=== PATIENT | male | born 1935 | race Caucasian/White ===

== ENCOUNTER 2016-07-29 17:18 | Emergency (ER) | payer OTHER ==
[~2016-07-29] VITALS: Ht 185.4 cm; Wt 71.0 kg
[~2016-07-29 17:18] MED LIST: AMLO10TA2 PO; ATOR40TA16 PO; MIRT1TAB PO
[2016-07-29 17:24] VITALS: BP 120/78; PULSE 107; RESP 16; TEMP 99.6; O2SAT 99
--- NOTE | 2016-07-29 17:37 | PD ---
HPI Chief Complaint: Fall Time Seen by Provider: 17:37 Travel History International Travel<30 days: No Contact w/Intl Traveler<30days: No Traveled to known affect area: No History of Present Illness HPI 81-year-old male presents to the emergency department for evaluation of right knee injury that occurred 2 days ago. He states he stepped down off a curb and fell hitting his right knee. He also has an abrasion to his left elbow. Patient states his tetanus immunization is not up-to-date. He states he went to an urgent care center who referred him to the emergency department. He states he had no pain before the injury. He denies any other injury. No head injury LOC. No neck pain or back pain. No chest pain or abdominal pain. No vomiting. He does report a history of multiple myeloma and renal carcinoma. However, he is in remission. He does also report history of hypertension and hyperlipidemia. He does not take any blood thinners and has no bleeding disorders. Patient has been ambulatory since the fall, but pain in the right knee with ambulation. PFSH Past Medical History Cancer: Yes (RENAL MASS) Cardiovascular Problems: Yes (htn on meds) High Cholesterol: Yes Chemotherapy: Yes (Last [place] end May ) Diabetes: No Diminished Hearing: No Endocrine: No Gastrointestinal Disorders: Yes (constipation) Genitourinary: No Hepatitis: No Hiatal Hernia: No Hypertension: Yes Immune Disorder: No Musculoskeletal: Yes (left rib pain) Neurologic: No Psychiatric: No Reproductive: No Respiratory: No Immunizations Current: No Thyroid Disease: No Tetanus Vaccination: Unknown Past Surgical History AICD: No Ear Surgery: Yes (right cataract) Joint Replacement: No Pacemaker: No Tonsillectomy: Yes Other Surgery: Yes (HEMORRHOIDECTOMY) Social History Alcohol Use: No (QUIT) Tobacco Use: No (QUIT 1987) Substance Use: No Allergies-Medications (Allergen,Severity, Reaction): Coded Allergies: No Known Allergies (Verified , 07/29/16) Reported Meds & Prescriptions Reported Meds & Active Scripts Active Lortab (Hydrocodone-Acetaminophen) 5-325 Mg Tab 1 Tab PO Q6H PRN Reported Atorvastatin (Atorvastatin Calcium) 40 Mg Tab 40 Mg PO HS Amlodipine (Amlodipine Besylate) 10 Mg Tab 10 Mg PO DAILY Review of Systems Except as stated in HPI: all other systems reviewed are Neg Physical Exam Narrative GENERAL: Well-developed well-nourished elderly male patient, ambulatory. Afebrile. SKIN: Warm and dry. Swelling noted to right knee. Patient also has abrasion to the left elbow. No erythema over right knee, slight warmth noted. HEAD: Normocephalic. Atraumatic. EYES: No scleral icterus. No injection or drainage. NECK: Supple, trachea midline. No JVD or lymphadenopathy. CARDIOVASCULAR: Regular rate and rhythm without murmurs, gallops, or rubs. Right pedal pulse 2+. Capillary refill less than 2 seconds to the digits of the right foot. RESPIRATORY: Breath sounds equal bilaterally. No accessory muscle use. Lungs sounds are clear to auscultation. GASTROINTESTINAL: Abdomen soft, non-tender, nondistended. MUSCULOSKELETAL: No cyanosis, or edema. Patient has slightly limited flexion due to pain, he can almost actively flex knee to 90 degrees.. He has full extension. He has some tenderness to palpation over the anterior knee. BACK: Nontender without obvious deformity. No CVA tenderness. Data Data Last Documented VS Vital Signs Date Time Temp Pulse Resp B/P Pulse Ox O2 Delivery O2 Flow Rate FiO2 07/29/16 17:30 16 99 Room Air 07/29/16 17:24 99.6 107 120/78 Orders Knee, Complete (4vws) (07/29/16 ) Tetanus/Diphtheria Tox Adult (Tetanus/Di (07/29/16 17:45) Acetamin-Hydrocod 325-5 Mg ([place] 5-325 (07/29/16 18:00) Ct Knee W/O Contrast (07/29/16 ) Splint Or Brace Apply/Monitor (07/29/16 19:14) MDM Medical Decision Making Medical Screen Exam Complete: Yes Emergency Medical Condition: Yes Medical Record Reviewed: Yes Interpretation(s) x-ray right knee - CONCLUSION: Soft-tissue swelling anteriorly with a large joint effusion. An acute fracture is not clearly identified. Ct of the right knee - CONCLUSION: 1. Large joint effusion. 2. Chondrocalcinosis. 3. Chronic degenerative change. Differential Diagnosis Knee contusion versus any fracture versus knee dislocation Narrative Course 81-year-old male presents to the emergency department for evaluation of right knee pain after a trip and fall 2 days ago. X-ray of the right knee is ordered and pending. Tetanus immunization is updated. X-ray of the right knee shows soft-tissue swelling anteriorly with a large joint effusion. An acute fracture is not clearly identified. CT of the knee is ordered and pending to rule out occult fracture. CT of the right knee shows CONCLUSION: 1. Large joint effusion; 2. Chondrocalcinosis; 3. Chronic degenerative change. Ari bandages applied. Patient started to use ice at home. He'll be discharged prescription for Lortab for pain. Also be given a prescription for Keflex for abrasion to the left elbow. He is encouraged to follow-up with orthopedist. He has instructed return for any worsening symptoms. The patient was discharged in stable condition with instructions, including return instructions and follow up instructions. Diagnosis Primary Impression: Contusion of right knee Qualified Code: S80.01XA - Contusion of right knee, initial encounter Additional Impression: Abrasion of elbow Qualified Code: S50.312A - Abrasion of elbow, left, initial encounter Referrals: Orthopedist call for appointment Patient Instructions: Abrasion (ED), Contusion in Adults (ED), General Instructions Additional Instructions: Clean abrasion twice daily with soap and water and apply [id number] antibiotic ointment. Take antibiotic as instructed until gone. Wear Ari bandage for support. Ice for 20 minutes 4-5 times daily. Follow-up with an orthopedist. Return to the emergency department for any acute worsening of symptoms. Med/Other Pt SpecificInfo: Prescription(s) given Scripts Cephalexin (Keflex)500 Mg [id number] Mg PO Q6H 7 Days Ref 0 Prov:Althea Mcgee 07/29/16 Hydrocodone-Acetaminophen (Lortab)5-325 Mg Tab1 Tab PO Q6H PRN (PAIN) #16 TAB Ref 0 Prov:Christy Lagunas MD 07/29/16 Disposition: 01 DISCHARGE HOME Condition: Stable Althea Mcgee Jul 29, 2016 17:37
[2016-07-29] MEDS ORDERED: TETANUS/DIPHTHERIA TOXOID ADULT 0.5 ML VIAL IM ONE (17:45)
[2016-07-29] MEDS ORDERED: ACETAMINOPHEN/HYDROcodone 325 MG/5 MG TAB PO ONE (18:00)
--- NOTE | 2016-07-29 18:09 | RADHPO ---
EXAM DATE/TIME: 07/29/2016 17:41 [facility] COMPARISON: No previous studies available for comparison. INDICATIONS : Right knee pain post fall on 07/27/16. MEDICAL HISTORY : None. SURGICAL HISTORY : None. ENCOUNTER: Initial ACUITY: 3 days PAIN SCORE: 9/10 LOCATION: Right knee. FINDINGS: There is a large joint effusion. An acute fracture is not clearly seen. There is some degree of cho ndrocalcinosis seen especially medially. There is some hypertrophic change seen at the proximal fibu la. There is prominent hypertrophic change seen at the posterior patella and superior to the patella . Vascular calcifications are seen. Soft-tissue swelling is seen anteriorly. CONCLUSION: Soft-tissue swelling anteriorly with a large joint effusion. An acute fracture is not clearly identi fied. Cam Herndon MD on July 29, 2016 at 18:01 Board Certified Radiologist. This report was verified electronically.
--- NOTE | 2016-07-29 19:03 | RADHPO ---
EXAM DATE/TIME: 07/29/2016 18:24 [facility] COMPARISON: KNEE RIGHT COMPLETE (4VWS), July 29, 2016, 17:41. INDICATIONS : Fall onto right knee two days ago. RADIATION DOSE: 9.59 CTDIvol (mGy) MEDICAL HISTORY : renal carcinoma, multiple myeloma SURGICAL HISTORY : bilateral knee arthroscopy ENCOUNTER: Initial ACUITY: 2 days PAIN SCALE: 6/10 LOCATION: Right knee TECHNIQUE: Volumetric scanning of the knee was performed. Using automated exposure control and a djustment of the mA and/or kV according to patient size, radiation dose was kept as low as reasonably achievable to obtain optimal diagnostic quality images. FINDINGS: A fracture is not seen. There does appear to be chondrocalcinosis being most prominent laterally. T here is hypertrophic change at the medial and lateral aspects of the knee joint. There is also hyper trophic change at the posterior margin of the patella and superior to the patella. There is a large joint effusion. There is a small focus of air seen within the medial aspect of the lateral joint spa ce. This could be secondary to a vacuum phenomenon. Vascular calcifications are seen. There is garry e soft-tissue swelling in the anterior subcutaneous tissues. CONCLUSION: 1. Large joint effusion. 2. Chondrocalcinosis. 3. Chronic degenerative change. Cam Herndon MD on July 29, 2016 at 18:55 Board Certified Radiologist. This report was verified electronically.
[2016-07-29] MEDS ORDERED: HYDR-3533 PO (19:11)
[2016-07-29] MEDS ORDERED: CEPH-460 PO (19:16)
[2016-07-29 19:33] VITALS: BP 98/78
== END 2016-07-29 19:37 | disposition home or self-care (01) ==
LOC: PHEFT 17:18
DX: S80.01XA Contusion of right knee, initial encounter (principal); S50.319A Abrasion of unspecified elbow, initial encounter; I10 Essential (primary) hypertension; E78.00 Pure hypercholesterolemia, unspecified; C90.00 Multiple myeloma not having achieved remission; Z23 Encounter for immunization
CPT/HCPCS: 73564; 73700; 90471; 90714

== ENCOUNTER → 2016-08-11 | Day surgery (SDC) | payer OTHER ==
[~2016-08-11] MED LIST changes: +ACETAMINOPHEN 1000 MG/100 ML VIAL IV ONE; +BUPIVACAINE/EPINEPHRINE 0.25% PF 30 ML VIAL ONE; +CEPH-460 PO; +HYDR-3533 PO; +LACTATED RINGER'S 1000 ML INJ 1,000 ML ONE; +LIDOCAINE 1%/EPINEPHrine 1:100,000 SOLN 20 ML VIAL ONE; +MIDAZOLAM HCL 2 MG/2 ML VIAL ONE; -MIRT1TAB PO; +PROPOFOL 200 MG/20 ML AMP IV ONE; +SODIUM CHLOR 0.9% 250 ML BAG IV ONE; +VANCOMYCIN HCL 1000 MG VIAL ONE; +ceFAZolin INJ 1,000 MG VIAL ONE
--- NOTE | 2016-08-15 07:14 | MP ---
cc: RYANNE CANDELARIO M.D. DATE OF SURGERY: 08/11/2016 PROCEDURE Right inguinal hernia repair with mesh. PREOPERATIVE DIAGNOSIS Symptomatic right inguinal hernia. POSTOPERATIVE DIAGNOSIS Symptomatic right inguinal hernia. ANESTHESIA TIVA. SURGEON Scott ESTIMATED BLOOD LOSS Less than 10 mL. FLUIDS 800 mL crystalloid. COMPLICATIONS None. DRAINS None. SPECIMEN None. PROCEDURE IN DETAIL The patient was seen in the holding area and the area to be operated on was marked by the undersigned and confirmed by the patient. He was taken to the operating room and placed on the operating table in supine position. The area was shaved, prepped and draped. A timeout was taken confirming the correct patient, site and procedure to be performed. The right groin area was infiltrated with local anesthetic and an incision made in the right groin. Dissection was carried down to the external oblique fascia where further subfascial injections were made with local anesthetic and the external oblique fibers opened in the direction of the fibers. Underlying tissue was swept free from the external oblique fascia and the spermatic cord structures were brought up on a Josh drain. Dissection was carried back to the internal ring and the patient was noted to have an indirect inguinal hernia. The indirect sac was dissected off of the cord structures and ligated with a pursestring 2-0 silk suture as the sac was entered at the point. The ligation occurred below the level of the opening. The excess sac was trimmed and the stump was allowed to retract into the abdominal cavity. The hernia was then repaired with a 3 x 6 inches piece of Atrium mesh which was transfixed to the pubic tubercle. This was then run along the shelving edge of the inguinal ligament with 2-0 Prolene suture. The mesh was slit longitudinally to allow for egress of the cord structures. The mesh was then fixed medially with interrupted 2-0 Prolene sutures. The iliohypogastric nerve was identified and care was taken to keep all sutures away from this nerve. The medial leaf of the mesh was then transposed over the lateral leaf of mesh and fixed to the inguinal ligament to create a new internal ring. The new internal ring was smaller to allow for egress of the cord structures but to minimize the risk of recurrence. With hemostasis assured 30 mL of 0.25% Marcaine with epinephrine was injected into the transversalis fascia and subcutaneous tissues. The external oblique fascia was closed with a running 3-0 Vicryl suture. The wound was then re-approximated with interrupted 3-0 Vicryl and the skin closed with 5-0 PDS in a running subcuticular fashion. The wound was dressed with Telfa and Tegaderm and the patient was taken back to the recovery room in stable condition. Sponge, needle and instrument counts were reported be correct. The patient tolerated the procedure well. MD ANNA Flood/SANJAY /9:15 AM /7:04 AM
== END | disposition home or self-care (01) ==
LOC: ESDC 08:09
PROVIDERS: ATTEND Surgery Trauma Surgery
DX: K40.90 Unilateral inguinal hernia, without obstruction or gangrene, not specified as recurrent (principal)
CPT/HCPCS: 00830; 49505; C1781; J0131; J0690; J2250; J3010; J3370; J7050; J7120

== ENCOUNTER 2017-05-04 14:56 | Inpatient (IN) | payer OTHER, MEDICARE ==
[~2017-05-04] VITALS: Ht 185.4 cm; Wt 72.7 kg
[2017-05-04] VITALS (7 sets, daily range): BP systolic 88–116; BP diastolic 53–65; PULSE 62–125; RESP 18–20; TEMP 97.4–98.5; O2SAT 96–99
[~2017-05-04 14:56] MED LIST changes: -ACETAMINOPHEN 1000 MG/100 ML VIAL IV ONE; -BUPIVACAINE/EPINEPHRINE 0.25% PF 30 ML VIAL ONE; -LACTATED RINGER'S 1000 ML INJ 1,000 ML ONE; -LIDOCAINE 1%/EPINEPHrine 1:100,000 SOLN 20 ML VIAL ONE; -MIDAZOLAM HCL 2 MG/2 ML VIAL ONE; -PROPOFOL 200 MG/20 ML AMP IV ONE; -SODIUM CHLOR 0.9% 250 ML BAG IV ONE; -VANCOMYCIN HCL 1000 MG VIAL ONE; -ceFAZolin INJ 1,000 MG VIAL ONE
[2017-05-04] MEDS ORDERED: MED FOR SLEEP PO (15:24)
[2017-05-04] MEDS ORDERED: UMEC1AER INH (15:24)
[2017-05-04] MEDS ORDERED: OXYMETAZOLINE HCL 0.05% 15 ML NASAL SPRAY NASAL ONE (16:15)
[2017-05-04] MEDS ORDERED: LIDOCAINE 2% JELLY 30 ML TUBE TOPICAL ONE (16:15)
[2017-05-04] MEDS ORDERED: SODIUM CHLOR 0.9% 1000 ML INJ 1,000 ML IV SCH (16:56)
--- NOTE | 2017-05-04 16:59 | PD ---
HPI . Epistaxis Chief Complaint: Nosebleed Time Seen by Provider: 16:05 Travel History International Travel<30 days: No Contact w/Intl Traveler<30days: No Traveled to known affect area: No History of Present Illness HPI Patient presents with chief complaint of bleeding from the left nare. Onset was about an hour prior to presentation. Etiology is unknown. The patient states that he was at the oncologist office when the bleeding started. He states that the oncologist told him to come here. The states that the oncologist is concerned about possible dehydration. He has had a diarrheal illness for the last few days and is feeling very weak. The patient has a history of multiple myeloma and renal cell carcinoma. PFSH Past Medical History Cancer: Yes (RENAL MASS; MULTIPLE MYELOMA) Cardiovascular Problems: Yes (htn on meds) High Cholesterol: Yes Chemotherapy: Yes (Last [place] end May ) Diabetes: No Diminished Hearing: No Endocrine: No Gastrointestinal Disorders: Yes (constipation) Genitourinary: No Hepatitis: No Hiatal Hernia: No Hypertension: Yes Immune Disorder: No Musculoskeletal: Yes (left rib pain) Neurologic: No Psychiatric: No Reproductive: No Respiratory: No Immunizations Current: No Thyroid Disease: No Tetanus Vaccination: < 5 Years Influenza Vaccination: Yes Past Surgical History AICD: No Ear Surgery: Yes (right cataract) Joint Replacement: No Pacemaker: No Tonsillectomy: Yes Other Surgery: Yes (HEMORRHOIDECTOMY) Social History Alcohol Use: No (QUIT) Tobacco Use: No (QUIT 1987) Substance Use: No Allergies-Medications (Allergen,Severity, Reaction): Coded Allergies: No Known Allergies (Verified , 05/04/17) Reported Meds & Prescriptions Reported Meds & Active Scripts Active Reported [Med For Sleep] 1 Tab PO HS Anoro Ellipta Inh (Umeclidinium/Vilanterol) 62.5-25 Mcg/Act Aero 1 Puff INH DAILY Atorvastatin (Atorvastatin Calcium) 40 Mg Tab 40 Mg PO DAILY Amlodipine (Amlodipine Besylate) 10 Mg Tab 10 Mg PO DAILY Review of Systems Except as stated in HPI: all other systems reviewed are Neg HENT: Positive: Nosebleed Gastrointestinal: Positive: Diarrhea Neurologic: Positive: Weakness Hematologic/Lymphatic: Positive: Other (multiple myeloma) Physical Exam Narrative GENERAL: Elderly man with active epistaxis. SKIN: Warm and dry. Pale. HEAD: Normocephalic/atraumatic. EYES: Pupils are equal. Extraocular movements are intact. ENT: Active bleeding from the left nostril. The patient is not doing a very good job of holding pressure. NECK: Full range of motion with no apparent pain. CARDIOVASCULAR: Tachycardic at about 120. RESPIRATORY: Nonlabored respirations. MUSCULOSKELETAL: Atraumatic. NEUROLOGICAL: Nonfocal. PSYCHIATRIC: Appropriate mood and affect. Data Data Last Documented VS Vital Signs Date Time Temp Pulse Resp B/P (MAP) Pulse Ox O2 Delivery O2 Flow Rate FiO2 05/04/17 18:19 112 18 112/63 (79) 97 Room Air 05/04/17 15:21 98.0 Orders Orders Oxymetazoline 0.05% Jordy Portal (Afrin 0.0 (05/04/17 16:15) Lidocaine 2% Jelly (Xylocaine 2% Jelly) (05/04/17 16:15) Complete Blood Count With Diff (05/04/17 16:56) Comprehensive Metabolic Panel (05/04/17 16:56) Prothrombin Time / Inr (Pt) (05/04/17 16:56) Act Partial Throm Time (Ptt) (05/04/17 16:56) Urinalysis - C+S If Indicated (05/04/17 16:56) Iv Access Insert/Monitor (05/04/17 16:56) Sodium Chlor 0.9% 1000 Ml Inj (Ns 1000 M (05/04/17 16:56) Sodium Chloride 0.9% Flush (Ns Flush) (05/04/17 17:00) Admit To Inpatient (05/04/17 ) Vital Signs (Adult) RAFY.Q4H (05/04/17 18:44) Activity Oob With Assistance (05/04/17 18:44) Sodium Chlor 0.9% 1000 Ml Inj (Ns 1000 M (05/04/17 18:44) Sodium Chloride 0.9% Flush (Ns Flush) (05/04/17 18:45) Sodium Chloride 0.9% Flush (Ns Flush) (05/04/17 21:00) Inpatient Certification (05/04/17 ) Basic Metabolic Panel (Bmp) (05/05/17 06:00) Complete Blood Count With Diff (05/05/17 06:00) Atorvastatin (Lipitor) (05/05/17 09:00) Umeclidin-Vilanter 62.5-25 Inh (Anoro-El (05/05/17 09:00) (Nf) [Med For Sleep] (05/04/17 21:00) Scd&Teds Bilateral/Knee High RAFY.QSHIFT (05/04/17 18:46) ^ Fall Precautions (05/04/17 18:46) Admit Order (Ed Use Only) (05/04/17 18:45) Consult Hematology (05/04/17 ) Labs Laboratory Tests Test 05/04/17 17:15 05/04/17 18:20 White Blood Count 7.8 TH/MM3 Red Blood Count 3.11 MIL/MM3 Hemoglobin 9.3 GM/DL Hematocrit 27.4 % Mean Corpuscular Volume 88.2 FL Mean Corpuscular Hemoglobin 29.8 PG Mean Corpuscular Hemoglobin Concent 33.8 % Red Cell Distribution Width 16.5 % Platelet Count 31 TH/MM3 Mean Platelet Volume 7.1 FL Neutrophils (%) (Auto) 55.0 % Lymphocytes (%) (Auto) 32.8 % Monocytes (%) (Auto) 11.4 % Eosinophils (%) (Auto) 0.6 % Basophils (%) (Auto) 0.2 % Neutrophils # (Auto) 4.3 TH/MM3 Lymphocytes # (Auto) 2.6 TH/MM3 Monocytes # (Auto) 0.9 TH/MM3 Eosinophils # (Auto) 0.0 TH/MM3 Basophils # (Auto) 0.0 TH/MM3 CBC Comment AUTO DIFF Differential Total Cells Counted 100 Neutrophils % (Manual) 45 % Band Neutrophils % 2 % Lymphocytes % 43 % Monocytes % 5 % Eosinophils % 2 % Neutrophils # (Manual) 3.9 TH/MM3 Metamyelocytes 3 % Differential Comment FINAL DIFF MANUAL Atypical Lymphocytes % Platelet Estimate LOW Platelet Morphology Comment NORMAL Ovalocytes 1+ Prothrombin Time 11.6 SEC Prothromb Time International Ratio 1.0 RATIO Activated Partial Thromboplast Time 33.8 SEC Blood Urea Nitrogen 40 MG/DL Creatinine 2.60 MG/DL Random Glucose 104 MG/DL Total Protein 6.6 GM/DL Albumin 2.7 GM/DL Calcium Level 9.0 MG/DL Alkaline Phosphatase 103 U/L Aspartate Amino Transf (AST/SGOT) 34 U/L Alanine Aminotransferase (ALT/SGPT) 21 U/L Total Bilirubin 0.8 MG/DL Sodium Level 139 MEQ/L Potassium Level 5.2 MEQ/L Chloride Level 106 MEQ/L Carbon Dioxide Level 19.4 MEQ/L Anion Gap 14 MEQ/L Estimat Glomerular Filtration Rate 24 ML/MIN Urine Color YELLOW Urine Turbidity CLEAR Urine pH 5.5 Urine Specific [place] 1.017 Urine Protein 30 mg/dL Urine Glucose (UA) NEG mg/dL Urine Ketones NEG mg/dL Urine Occult Blood TRACE Urine Nitrite NEG Urine Bilirubin NEG Urine Leukocyte Esterase NEG Urine WBC 0-2 /hpf Microscopic Urinalysis Comment CULT NOT INDICATED MDM Medical Decision Making Medical Screen Exam Complete: Yes Emergency Medical Condition: Yes Medical Record Reviewed: Yes (medical history includes HTN, HL, renal CA, mult myeloma, smoking) Differential Diagnosis Differential diagnosis includes but is not limited to epistaxis due to an upper respiratory infection, coagulopathy, local trauma, nasal fracture Narrative Course This patient presents with a chief complaint of epistaxis and the secondary complaint of recent diarrhea and generalized weakness. I have ordered a liter of fluid along with basic labs and urinalysis. CBC & BMP Diagram 05/04/17 17:15 Total Protein 6.6, Albumin 2.7 L, Calcium Level 9.0, Alkaline Phosphatase 103, Aspartate Amino Transf (AST/SGOT) 34, Alanine Aminotransferase (ALT/SGPT) 21, Total Bilirubin 0.8 UA neg. The patient has had a liter of fluid and remains tachycardic. His personal oncologist, Dr. Bowen, came to see him. Dr. Bowen recommends admission for observation and IV fluid hydration. Procedures Procedure Narrative NASAL PACKINst, Afrin was sprayed in the left nare. Then the nare was packed with an anterior Rhinorocket coated with Xylocaine jelly was placed in the left nare. Adequate control of bleeding was obtained. The patient was observed without recurrence of bleeding. Patient tolerated procedure well. Physician Communication Physician Communication Dr. Alvarado and Dr. Bowen Diagnosis Primary Impression: Anterior epistaxis Additional Impression: Acute renal failure Qualified Codes: N17.9 - Acute kidney failure, unspecified Admitting Information Admitting Physician Requests: Observation Condition: Stable Annie Tavares MD May 04, 2017 16:59
[2017-05-04] MEDS ORDERED: SODIUM CHLORIDE 0.9% FLUSH 10 ML FLUSH IV FLUSH PRN ×2 (17:00→18:45)
[2017-05-04 17:42] LABS: CHLORIDE 106 MEQ/L (98-107); POTASSIUM 5.2 MEQ/L (3.5-5.1); SODIUM (NA) 139 MEQ/L (136-145)
[2017-05-04 17:43] LABS: AUTOMATED NEUTROPHIL # 4.3 TH/MM3 (1.8-7.7); BASOPHIL % 0.2 % (0.0-2.0); EOSINOPHIL % 0.6 % (0.0-4.0); HEMATOCRIT 27.4 % (39.0-51.0); LYMPH % 32.8 % (9.0-44.0); LYMPHOCYTE # 2.6 TH/MM3 (1.0-4.8); MEAN CELL VOLUME 88.2 FL (80.0-100.0); MEAN CORPUSCULAR HEMOGLOBIN 29.8 PG (27.0-34.0); MEAN CORPUSCULAR HGB CONC 33.8 % (32.0-36.0); MONO % 11.4 % (0.0-8.0); PLATELET COUNT 31 TH/MM3 (150-450); RED BLOOD COUNT 3.11 MIL/MM3 (4.50-5.90); RED CELL DISTRIBUTION WIDTH 16.5 % (11.6-17.2); WHITE BLOOD COUNT 7.8 TH/MM3 (4.0-11.0)
[2017-05-04 17:45] LABS: HEMO FLAGS AUTO DIFF
[2017-05-04 17:46] LABS: ANION GAP 14 MEQ/L (5-15); BICARBONATE 19.4 MEQ/L (21.0-32.0); BLOOD UREA NITROGEN 40 MG/DL (7-18)
[2017-05-04 17:47] LABS: APTT (PATIENT) 33.8 SEC (24.3-30.1); PROTHROMBIN TIME - PATIENT 11.6 SEC (9.8-11.6)
[2017-05-04 17:49] LABS: ALT (GPT) 21 U/L (12-78); AST (GOT) 34 U/L (15-37); GLOMERULAR FILTRATION RATE 24 ML/MIN (>89)
[2017-05-04 17:51] LABS: TOTAL BILIRUBIN ADULT 0.8 MG/DL (0.2-1.0)
[2017-05-04 17:52] LABS: ALKALINE PHOSPHATASE 103 U/L (45-117)
[2017-05-04 18:23] LABS: BANDS 2 % (0-6); EOSINOPHILS 2 % (0-4); METAMYELOCYTES 3 % (0-1); NEUTROPHIL # MANUAL DIFF 3.9 TH/MM3 (1.8-7.7); OVALOCYTES 1+ (NORMAL); POLYS (SEG NEUTROPHILS) 45 % (16-70); WBC DIFF SAMPLE 100
[2017-05-04 18:24] LABS: PLATELET ESTIMATE SMEAR LOW (NORMAL); PLATELET MORPHOLOGY NORMAL (NORMAL); SCAN/DIFF FINAL DIFF MANUAL
[2017-05-04 18:27] LABS: GLUCOSE,URINE NEG (NEG); KETONE, URINE NEG (NEG); NITRITE,URINE NEG (NEG); PH, URINE 5.5 (5.0-8.5)
[2017-05-04 18:30] LABS: BLOOD, URINE TRACE (NEG); URINE COLOR YELLOW (YELLW/STRAW)
[2017-05-04 18:32] LABS: COMMENT (UR) CULT NOT INDICATED; CULTURE IF INDICATED CULT NOT INDICATED; WBC, URINE 0-2 /hpf (0-5)
--- NOTE | 2017-05-04 19:15 | HHI.HP ---
HPI Service [facility] Primary Care Physician Fran Whitten M.D. Admission Diagnosis ARF, epistaxis Diagnoses: Chief Complaint: Nosebleed Travel History International Travel<30 Days: No Contact w/Intl Traveler <30 Da: No Traveled to Known Affected Are: No History of Present Illness 81-year-old white male being admitted for acute kidney injury. Patient was in his usual state of health until about 5 days ago when he experienced more than 5 bouts of diarrhea after attending a constitution party the night before. His experienced the same symptoms. His says that he's been feeling slightly weak before those episodes, but states that since his diarrhea he's felt even weaker and has largely stayed in bed. Patient denies any nausea vomiting or any abdominal pain. Denies any fevers or chills. Review of Systems Except as stated in HPI: all other systems reviewed are Neg Past Family Social History Past Medical History Multiple myeloma and RCC Past Surgical History Right nephrectomy secondary to tumor growth hemorrhoidectomy Allergies: Coded Allergies: No Known Allergies (Verified , 05/04/17) Family History Hypertension Social History stopped smoking in '80s. Lives with Physical Exam Vital Signs Vital Signs Date Time Temp Pulse Resp B/P (MAP) Pulse Ox O2 Delivery O2 Flow Rate FiO2 05/04/17 18:19 112 18 112/63 (79) 97 Room Air 05/04/17 15:25 118 18 05/04/17 15:21 98.0 118 18 97/58 (71) 96 Room Air 05/04/17 15:09 98.1 125 18 88/53 (65) 96 Physical Exam ENT: Left nostril with Rhino Rocket in place with dried red blood, no flowing blood noted Oropharynx: States heart palate with dried black blood scattered throughout oral cavity, dentures in place, no ulcerations or other lesions noted Skin: No obvious diffuse petechiae or ecchymoses noted Laboratory Laboratory Tests Test 05/04/17 17:15 05/04/17 18:20 White Blood Count 7.8 Red Blood Count 3.11 Hemoglobin 9.3 Hematocrit 27.4 Mean Corpuscular Volume 88.2 Mean Corpuscular Hemoglobin 29.8 Mean Corpuscular Hemoglobin Concent 33.8 Red Cell Distribution Width 16.5 Platelet Count 31 Mean Platelet Volume 7.1 Neutrophils (%) (Auto) 55.0 Lymphocytes (%) (Auto) 32.8 Monocytes (%) (Auto) 11.4 Eosinophils (%) (Auto) 0.6 Basophils (%) (Auto) 0.2 Neutrophils # (Auto) 4.3 Lymphocytes # (Auto) 2.6 Monocytes # (Auto) 0.9 Eosinophils # (Auto) 0.0 Basophils # (Auto) 0.0 CBC Comment AUTO DIFF Differential Total Cells Counted 100 Neutrophils % (Manual) 45 Band Neutrophils % 2 Lymphocytes % 43 Monocytes % 5 Eosinophils % 2 Neutrophils # (Manual) 3.9 Metamyelocytes 3 Differential Comment FINAL DIFF MANUAL Atypical Lymphocytes Platelet Estimate LOW Platelet Morphology Comment NORMAL Ovalocytes 1+ Prothrombin Time 11.6 Prothromb Time International Ratio 1.0 Activated Partial Thromboplast Time 33.8 Blood Urea Nitrogen 40 Creatinine 2.60 Random Glucose 104 Total Protein 6.6 Albumin 2.7 Calcium Level 9.0 Alkaline Phosphatase 103 Aspartate Amino Transf (AST/SGOT) 34 Alanine Aminotransferase (ALT/SGPT) 21 Total Bilirubin 0.8 Sodium Level 139 Potassium Level 5.2 Chloride Level 106 Carbon Dioxide Level 19.4 Anion Gap 14 Estimat Glomerular Filtration Rate 24 Urine Color YELLOW Urine Turbidity CLEAR Urine pH 5.5 Urine Specific Prospect 1.017 Urine Protein 30 Urine Glucose (UA) NEG Urine Ketones NEG Urine Occult Blood TRACE Urine Nitrite NEG Urine Bilirubin NEG Urine Leukocyte Esterase NEG Urine WBC 0-2 Microscopic Urinalysis Comment CULT NOT INDICATED Result Diagram: 05/04/17171405/04/171714 Caprini VTE Risk Assessment Caprini VTE Risk Assessment: Mod/High Risk (score >= 2) Caprini Risk Assessment Model Point Value = 1 Point Value = 2 Point Value = 3 Point Value = 5 Age 41-60 Minor surgery BMI > 25 kg/m2 Swollen legs Varicose veins or History of unexplained or recurrent spontaneous Oral contraceptives or hormone replacement Sepsis (< 1 month) Serious lung disease, including pneumonia (< 1 month) Abnormal pulmonary function Acute myocardial infarction Congestive heart failure (< 1 month) History of inflammatory bowel disease Medical patient at bed rest Age 61-74 Arthroscopic surgery Major open surgery (> 45 min) Laparoscopic surgery (> 45 min) Malignancy Confined to bed (> 72 hours) Immobilizing plaster cast Central venous access Age >= 75 History of VTE Family history of VTE Factor V Leiden Prothrombin [id number] Lupus anticoagulant Anticardiolipin antibodies Elevated serum homocysteine Heparin-induced thrombocytopenia Other congenital or acquired thrombophilia Stroke (< 1 month) Elective arthroplasty Hip, pelvis, or leg fracture Acute spinal cord injury (< 1 month) Prophylaxis Regimen Total Risk Factor Score Risk Level Prophylaxis Regimen 0-1 Low Early ambulation 2 Moderate Order ONE of the following: *Sequential Compression Device (SCD) *Heparin 5000 units SQ BID 3-4 Higher Order ONE of the following medications: *Heparin 5000 units SQ TID *Enoxaparin/Lovenox 40 mg SQ daily (WT < 150 kg, CrCl > 30 mL/min) *Enoxaparin/Lovenox 30 mg SQ daily (WT < 150 kg, CrCl > 10-29 mL/min) *Enoxaparin/Lovenox 30 mg SQ BID (WT < 150 kg, CrCl > 30 mL/min) AND/OR *Sequential Compression Device (SCD) 5 or more Highest Order ONE of the following medications: *Heparin 5000 units SQ TID (Preferred with Epidurals) *Enoxaparin/Lovenox 40 mg SQ daily (WT < 150 kg, CrCl > 30 mL/min) *Enoxaparin/Lovenox 30 mg SQ daily (WT < 150 kg, CrCl > 10-29 mL/min) *Enoxaparin/Lovenox 30 mg SQ BID (WT < 150 kg, CrCl > 30 mL/min) AND *Sequential Compression Device (SCD) Assessment and Plan Problem List: (1) Anterior epistaxis ICD Code: R04.0 - Epistaxis Status: Acute (2) Acute renal failure ICD Code: N17.9 - Acute kidney failure, unspecified Status: Acute Assessment and Plan Acute renal injury - Secondary to dehydration secondary to diarrhea - Receiving 2 L boluses in ER, continue IV fluids afterwards - BMP in AM Epistaxis - Stopped at this moment; likely from cold weather and low platelets combined. Maintain Rhino Rocket pressure application Thrombocytopenia - Likely secondary to multiple myeloma, trend in a.m. - Fall precautions HYL - continue home lipitor DVT - qualifies for pharmacal prophylaxis but due to his low platelets, is at risk of bleeding, we'll proceed with SCDs Physician Certification 2 Midnight Certification Type: Admission for Inpatient Services Order for Inpatient Services The services are ordered in accordance with Medicare regulations or non- Medicare payer requirements, as applicable. In the case of services not specified as inpatient-only, they are appropriately provided as inpatient services in accordance with the 2-midnight benchmark. Estimated LOS (days): 2 2 days is the estimated time the patient will need to remain in the hospital, assuming treatment plan goals are met and no additional complications. Post-Hospital Plan: Home Problem Qualifiers (1) Acute renal failure: Qualified Codes: N17.9 - Acute kidney failure, unspecified Nam Alvarado MD May 04, 2017 19:15
[2017-05-04] MEDS: SODIUM CHLOR 0.9% 1000 ML INJ 1,000 ML IV SCH (19:58)
[2017-05-04] MEDS ORDERED: [UNRECOGNIZED DRUG - OTHER] PO SCH (21:00)
[2017-05-04] MEDS: SODIUM CHLORIDE 0.9% FLUSH 10 ML FLUSH IV FLUSH SCH (21:00)
[2017-05-05] VITALS: BP 96/60; PULSE 100; RESP 18; TEMP 97.8; O2SAT 97
[2017-05-05 04:00] VITALS: BP 99/59; PULSE 108; RESP 16; TEMP 97.8; O2SAT 98
[2017-05-05] MEDS: SODIUM CHLOR 0.9% 1000 ML INJ 1,000 ML IV SCH ×2 (05:14→09:02)
[2017-05-05 07:20] LABS: AUTOMATED NEUTROPHIL # 3.1 TH/MM3 (1.8-7.7); BASOPHIL % 0.2 % (0.0-2.0); EOSINOPHIL % 0.7 % (0.0-4.0); HEMATOCRIT 23.6 % (39.0-51.0); LYMPH % 40.6 % (9.0-44.0); LYMPHOCYTE # 2.6 TH/MM3 (1.0-4.8); MEAN CELL VOLUME 87.3 FL (80.0-100.0); MEAN CORPUSCULAR HEMOGLOBIN 29.6 PG (27.0-34.0); MONO % 10.7 % (0.0-8.0); NEUT % 47.8 % (16.0-70.0); PLATELET COUNT 29 TH/MM3 (150-450); RED CELL DISTRIBUTION WIDTH 17.4 % (11.6-17.2); WHITE BLOOD COUNT 6.4 TH/MM3 (4.0-11.0)
[2017-05-05 07:27] LABS: POTASSIUM 4.6 MEQ/L (3.5-5.1)
[2017-05-05 07:28] LABS: HEMO FLAGS AUTO DIFF
[2017-05-05 07:52] LABS: BANDS 1 % (0-6); BASOPHILS 1 % (0-2); NEUTROPHIL # MANUAL DIFF 2.4 TH/MM3 (1.8-7.7); PLATELET ESTIMATE SMEAR LOW (NORMAL); PLATELET MORPHOLOGY NORMAL (NORMAL); POLYS (SEG NEUTROPHILS) 36 % (16-70); SCAN/DIFF FINAL DIFF MANUAL; WBC DIFF SAMPLE 100
[2017-05-05 08:00] VITALS: BP 115/70; PULSE 102; PULSE 97; RESP 18; TEMP 97.5; O2SAT 96
[2017-05-05] MEDS ORDERED: ATORVASTATIN 40 MG TAB PO SCH (09:00)
[2017-05-05] MEDS ORDERED: SODIUM CHLORID 0.9% 500 ML INJ 500 ML IV ONE (09:00)
[2017-05-05] MEDS: SODIUM CHLORIDE 0.9% FLUSH 10 ML FLUSH IV FLUSH SCH (09:00)
[2017-05-05] MEDS ORDERED: METOCLOPRAMIDE HCL 10 MG/2 ML VIAL IV PUSH ONE (09:00)
[2017-05-05] MEDS ORDERED: ACETAMINOPHEN/CODEINE 300 MG/30 MG TAB PO ONE (09:00)
[2017-05-05] MEDS ORDERED: UMECLIDINIUM 62.5 MCG/VILANTEROL 25 MCG INHALER INH SCH (09:00)
[2017-05-05] MEDS ORDERED: diphenhydrAMINE HCL 25 MG CAP PO PRN (10:00)
[2017-05-05] MEDS ORDERED: ACETAMINOPHEN 325 MG TAB PO PRN (10:00)
[2017-05-05] MEDS ORDERED: SODIUM CHLOR 0.9% 250 ML INJ 250 ML IV ONE (10:00)
[2017-05-05 12:00] VITALS: BP 118/80; PULSE 95; RESP 19; TEMP 98; O2SAT 95
--- NOTE | 2017-05-05 12:45 | MB ---
cc: BALTAZAR MCLAUGHLIN M.D., ZAFAR, MD DATE OF CONSULTATION: 05/04/2017 DATE OF : 1935 REASON FOR CONSULTATION: 1. Patient with oligosecretory multiple myeloma; currently on systemic therapy with Velcade and dexamethasone. 2. Diagnosis of renal cell carcinoma (clear cell); status post surgical resection and presently in remission. CHIEF COMPLAINT Mr. Romo reports having generalized weakness and fatigue over the past several days, He reports having severe diarrhea which lasted about 2 days, earlier this week. Additionally he reports developing a nosebleed on his way to my office earlier today. The patient was also noted to be hypotensive in my clinic earlier prior to referral to the emergency department. HISTORY OF PRESENT ILLNESS Mr. Romo is an 81-year-old male who is well-known to me from I have practice. Mr. Romo was initially referred to me in the spring of 2015 after he was found to have a large mass involving the right kidney. He at that time was noted to have extensive the hypermetabolic skeletal lesions which are concerning for metastatic renal cell carcinoma. He underwent a needle guided biopsy of one of the escrow representative lesions and interestingly, the core biopsy in the bone revealed findings consistent with multiple myeloma. He underwent a myeloma workup with serum biochemical staging study and was found to have really no evidence of multiple myeloma. A formal bone marrow biopsy was done which confirmed diagnosis of oligosecretory/nonsecreatory multiple myeloma. He subsequently underwent a biopsy of his kidney mass and that revealed findings consistent with renal cell carcinoma. He had in fact what later became known as two synchronously diagnosed unrelated primary malignancies. The patient underwent systemic therapy for his multiple myeloma with combination Dexamethasone, Velcade and Cytoxan (Cyborg E) to which he had a good response. There was objective response on his bone marrow biopsy as well as CT scan which revealed resolution of entirely all of the hypermetabolic skeletal lesions. He later underwent surgical resection of the right kidney. Following surgical resection of the right kidney. He did have significant comorbidity and was unable to resume systemic therapy for his myeloma for several months. Earlier this year we resumed systemic therapy with pomalidomide however, the patient had difficulty tolerating this and after 1 month of treatment he requested he be transitioned back to Velcade which was started I believe in the summer. He has had a relatively stable disease as far as the myelomas concern over the past several months and his renal cell carcinoma remains in remission. Overall, however Mr. Romo has had general failure to thrive and though he has been functional he has required a fair deal of assistance. He came in earlier today to see me for Velcade dosing and pretreatment visit. He was however noted to have a blood pressure 70/39 in my clinic, he had a nosebleed which was unexplained and appeared to be a very unstable on his feet. He was referred to the emergency department where I later saw him. PAST MEDICAL HISTORY 1. Oligosecretory multiple myeloma. Currently on treatment with Velcade. 2. 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 3. Diverticulitis. 4. Hemorrhoids. 5. Hypertension. 6. Frailty. PAST SURGICAL HISTORY Right nephrectomy in 2016. Multiple bone marrow biopsies. Right knee surgery. Left knee surgery Colonoscopy CT guided image biopsy of a skeletal lesion. ALLERGIES NO KNOWN DRUG ALLERGIES FAMILY HISTORY Parents are both , mom at age of 98, dad at the age of 83. SOCIAL HISTORY The patient is , lives at home with his and two grandsons over both adults. The patient reports being a former smoker but he quit smoking 35 years ago. He smoked a pack a day for 30 years prior to quitting. 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 CURRENT OUTPATIENT MEDICATIONS 1. Amlodipine 10 mg 2. Atorvastatin 40 mg as today. Current inpatient MEDICATIONS 1. Normal saline 100 cc/hour. 2. Tylenol with Codeine 3/300 mg 1 tablet as needed. 3. Atorvastatin 40 mg once a day 4. Metoclopramide 5 mg IV x1 for nausea. REVIEW OF SYSTEMS 13-point review of systems were obtained the following are the pertinent positives: CONSTITUTIONAL: The patient reports fatigue, weakness, loss of appetite. Dizziness on standing. HEAD, EYES, EARS, NOSE, AND THROAT: He denies headaches, reports dizziness, denies blurry vision or difficulty swallowing or soreness in the throat. He has nosebleed from the left nose. RESPIRATORY: Reports exertional dyspnea, denies pleuritic chest pain, denies cough, hemoptysis. CARDIOVASCULAR: Denies angina-like chest pain, PND, orthopnea, palpitations. Denies lower extremity edema. GASTROINTESTINAL: Denies nausea, vomiting, diarrhea hematochezia and melena, but does report having had diarrhea which is severe but now resolved. GENITOURINARY: Denies dysuria, hematuria, urinary incontinence. CENTRAL NERVOUS SYSTEM: Denies any focal sensory motor deficits. No other complaints reported. PHYSICAL EXAMINATION VITAL SIGNS: Temperature 97.4 degrees Fahrenheit, heart rate 62 beats per minute, respiratory rate 20, blood pressure 116/65, O2 sats are 98% on room air. GENERAL PHYSICAL APPEARANCE: Mr. Romo is an elderly male, he is of medium height and thin build, he appears to be frail and near cachectic. At the time I saw him in the emergency department he had a nasal packing in place of the left nare. No active bleeding from the nose was appreciated. He appears to be in no acute distress. HEAD, EYES, EARS, NOSE, AND THROAT: Head is atraumatic, normocephalic, conjunctive are pale sclerae are anicteric, extraocular muscles intact, Pupils equal, round, reactive to light and accommodation oral exam no pharyngeal erythema. Nose exam: Nasal rocket in place in the left nare. Crusted blood is noted. NECK: Neck exam no palpable cervical or supraclavicular lymphadenopathy. RESPIRATORY EXAMINATION: Good air movement bilaterally without any added breath sounds. Prolonged expiratory phase. CARDIOVASCULAR SYSTEM: Tachycardiac, regular, S1-S2. No obvious murmurs, rubs or gallops. ABDOMINAL EXAMINATION: Thin belly, soft, nontender, nondistended No palpable organ enlargement. EXTREMITIES: No pretibial edema or calf tenderness. MUSCULOSKELETAL: Generally decreased / atrophic muscle mass. He is generally weak but without any focal sensory motor deficits. SKIN: The skin examination without extensive bruising, No other lesions were noted. LABORATORY FINDINGS Blood work dated 05/04/2017: WBC count 10.8, hemoglobin 9.3 gm/dl, hematocrit is 27.4%, platelet count noted to be 31,000. Chemistries: His chemistry date 04/28/2017: Sodium 139, potassium 5.2, chloride 106, bicarb 19.4, creatinine 2.6, glucose 104, calcium nine, total bilirubin 0.8, AST 34, ALT 21, alkaline phosphatase of three, albumin 2.7. IMAGING STUDIES No x-rays imaging studies were available. Microbiology: There was no microbiology sent. ASSESSMENT Mr. Romo is an 81-year-old male who has a diagnosis of oligosecretory multiple myeloma currently on treatment with single-agent Velcade and dexamethasone. He also has a diagnosis of renal cell carcinoma which was diagnosed synchronously with the myeloma and this is a remission after he underwent surgical resection in the fall of 2015. The patient came in to see me on 05/04/2017 in my [place] office and was noted to be hypotensive, he was feeling fatigued, tired and clinically appeared to be dehydrated. Earlier that week he had experienced 2 days of diarrhea after having been out with friends to eat. Additionally he had a nosebleed which did not stop in my clinic. He was referred to the emergency department for further workup and management. Upon evaluation in the emergency department he was noted to have acute on chronic renal failure with creatinine of 2.6 which is significantly higher than his baseline of 1.4. He was also noted to be thrombocytopenic. Blood work done on 05/01/2017 reveals a platelet count 64,000. Blood work on 05/04/2017 revealed a platelet count of 31,000. He required packing of his nasal passageway on the left side to control of epistaxis. He was admitted to the hospital for hydration and additional supportive care. RECOMMENDATIONS 1. oligosecretory multiple myeloma. The patient had been on treatment with Velcade and dexamethasone. I would like this treatment to remain on hold until his clinical condition improves. He may require introduction of additional agents should his disease progressed. Unfortunately because he has oligosecretory/nonsecreatory myeloma. He requires a restaging bone marrow biopsies to assess for response to therapy which becomes cumbersome and painful for the patient. 2. Thrombocytopenia: Likely related to K associated myelosuppression. This may also be related to progressive myeloma. At any rate due to his epistaxis I would recommend transfusing one unit of platelets to help control the bleed, if this has not already been done. 3. Acute renal failure: Hydrated liberally to help manage his acute renal insufficiency. This is likely related to the patient being dehydrated from his diarrheal illness. I have Encouraged p.o. intake. 4. History of renal cell carcinoma: Clinically in remission, his most recent restaging pet CT scan, I believe from earlier this year revealed no evidence of recurrence. 5. Should the patient develop any signs or symptoms of sepsis please initiate MR renally dosed broad-spectrum antibiotics. He is not neutropenic at this time. Therefore neutropenic doses will not be required. MD DARNELL Serrano/dimitry /9:42 AM /11:51 AM
[2017-05-05 13:13] VITALS: BP 111/68; RESP 20; TEMP 96.9; O2SAT 96
[2017-05-05 13:28] VITALS: BP 110/70; PULSE 75; RESP 20; TEMP 98.6
[2017-05-05] MEDS ORDERED: AUGM875T3 PO (15:20)
--- NOTE | 2017-05-05 15:20 | HHI.DCPOC ---
Discharge Care Plan Diagnosis: (1) Thrombocytopenia (2) Anterior epistaxis (3) Acute renal failure Goals to Promote Your Health * To prevent worsening of your condition and complications * To maintain your health at the optimal level Directions to Meet Your Goals Take your medications as prescribed Follow your dietary instruction Follow activity as directed Keep your appointments as scheduled Take your immunizations and boosters as scheduled If your symptoms worsen call your PCP, if no PCP go to Urgent Care Center or Emergency Room Smoking is Dangerous to Your Health. Avoid second hand smoke Call the 24-hour hour crisis hotline for domestic abuse at Nam Alvarado MD May 05, 2017 15:20
--- NOTE | 2017-05-05 15:27 | HHI.DS ---
Discharge Summary Admission Date May 04, 2017 at 18:45 Discharge Date: May 05, 2017 Admitting Diagnosis ARF, epistaxis (1) Anterior epistaxis ICD Code: R04.0 - Epistaxis Status: Acute (2) Acute renal failure ICD Code: N17.9 - Acute kidney failure, unspecified Status: Acute Procedures none other than rhino rocket placement in ED Brief History - From Admission 81-year-old white male being admitted for acute kidney injury. Patient was in his usual state of health until about 5 days ago when he experienced more than 5 bouts of diarrhea after attending a democrat the night before. His experienced the same symptoms. His says that he's been feeling slightly weak before those episodes, but states that since his diarrhea he's felt even weaker and has largely stayed in bed. Patient denies any nausea vomiting or any abdominal pain. Denies any fevers or chills. CBC/BMP: 05/05/17 0650 05/05/17 0650 Significant Findings Laboratory Tests Test 05/04/17 17:15 05/04/17 18:20 05/05/17 06:50 Red Blood Count 3.11 MIL/MM3 (4.50-5.90) 2.70 MIL/MM3 (4.50-5.90) Hemoglobin 9.3 GM/DL (13.0-17.0) 8.0 GM/DL (13.0-17.0) Hematocrit 27.4 % (39.0-51.0) 23.6 % (39.0-51.0) Platelet Count 31 TH/MM3 (150-450) 29 TH/MM3 (150-450) Monocytes (%) (Auto) 11.4 % (0.0-8.0) 10.7 % (0.0-8.0) Metamyelocytes 3 % (0-1) Platelet Estimate LOW (NORMAL) LOW (NORMAL) Ovalocytes 1+ (NORMAL) Activated Partial Thromboplast Time 33.8 SEC (24.3-30.1) Blood Urea Nitrogen 40 MG/DL (7-18) 34 MG/DL (7-18) Creatinine 2.60 MG/DL (0.60-1.30) 2.20 MG/DL (0.60-1.30) Albumin 2.7 GM/DL (3.4-5.0) Potassium Level 5.2 MEQ/L (3.5-5.1) Carbon Dioxide Level 19.4 MEQ/L (21.0-32.0) 19.0 MEQ/L (21.0-32.0) Estimat Glomerular Filtration Rate 24 ML/MIN (>89) 29 ML/MIN (>89) Urine Protein 30 mg/dL (NEG-TRACE) Red Cell Distribution Width 17.4 % (11.6-17.2) Mean Platelet Volume 6.6 FL (7.0-11.0) Lymphocytes % 52 % (9-44) Monocytes % 10 % (0-8) Calcium Level 8.1 MG/DL (8.5-10.1) Chloride Level 109 MEQ/L (98-107) PE at Discharge Rhino Rocket and left Nare Much less dried blood noted on soft palate today compared to yesterday Hospital Course Patient was admitted, maintained his anterior Rhino Rocket application for anterior epistaxis - no further bleeding was noted and patient. he Received a transfusion of platelets as authorized by hematology for his thrombocytopenia. His hemoglobin did drop but this was felt to be dilutional . Patient's renal function did improve mildly, he was adamant about going home and hydrating himself orally. Patient was counseled that it would be of best interest to stay as an inpatient given that he has only one functional and remaining kidney , but that he could still therapeutically help himself at home with aggressive oral hydration should he want to go home -he opted to be discharge. Patient was also counseled that should he start to feel sick with fevers or chills or increased nasal stuffiness to start taking the Augmentin to cover for any possible sinusitis infection from the nasal pressure application. He was instructed to have this removed no later than Sunday, May 07. Pt Condition on Discharge: Stable Discharge Disposition: Discharge Home Discharge Time: > 30 minutes Discharge Instructions DIET: Follow Instructions for: Heart Healthy Diet Activities you can perform: Weight Bearing as Nikolay Follow up Referrals: Ear Nose Throat - 2-3 Days with Jamie Schmitt MD PCP Follow-up - 2-3 Days New Medications: Amoxicillin-Clavulanate (Augmentin) 875-125 Mg Tab 1 TAB PO BID for Infection, #20 TAB 0 Refills Continued Medications: Amlodipine (Amlodipine) 10 Mg Tab 10 MG PO DAILY for Blood Pressure Management, #30 TAB 0 Refills Atorvastatin (Atorvastatin) 40 Mg Tab 40 MG PO DAILY for Cholesterol Management, #30 TAB 0 Refills Umeclidinium-Vilanterol Inh (Anoro Ellipta Inh) 62.5-25 Mcg/Act Aero 1 PUFF INH DAILY for COPD, #1 INHALER 0 Refills [Med For Sleep] () 1 TAB PO HS Nam Alvarado MD May 05, 2017 15:27
== END 2017-05-05 16:09 | disposition home or self-care (01) | DRG 683 ==
LOC: PHED 14:56 → PHEDA 18:45 → PH3B 20:44
PROVIDERS: ADMIT Hospitalist; ATTEND Hospitalist
PROC: 2Y41X5Z Packing of Nasal Region using Packing Material (ICD-10-PCS; principal; 2017-05-04)
PROC: 30233R1 Transfusion of Nonautologous Platelets into Peripheral Vein, Percutaneous Approach (ICD-10-PCS; 2017-05-05)
DX: N17.9 Acute kidney failure, unspecified (principal); C90.00 Multiple myeloma not having achieved remission; C64.1 Malignant neoplasm of right kidney, except renal pelvis; D69.59 Other secondary thrombocytopenia; R04.0 Epistaxis; E86.0 Dehydration; R62.7 Adult failure to thrive; I10 Essential (primary) hypertension; E78.5 Hyperlipidemia, unspecified; Z87.891 Personal history of nicotine dependence
CPT/HCPCS: 36430; 80048; 80053; 81001; 85007; 85027; 85610; 85730; 86900; 86901; 96360; J2765; J7030; J7040; J7050; P9035

== ENCOUNTER 2017-05-19 21:17 | Emergency (ER) | payer OTHER ==
[~2017-05-19] VITALS: Ht 185.4 cm; Wt 80.0 kg
[~2017-05-19 21:17] MED LIST changes: +AUGM875T3 PO; -CEPH-460 PO; -HYDR-3533 PO; +MED FOR SLEEP PO; +UMEC1AER INH
[2017-05-19] MEDS ORDERED: SODIUM CHLOR 0.9% 1000 ML INJ 1,000 ML IV ONE (21:45)
[2017-05-19 22:04] VITALS: BP 89/61; PULSE 121; RESP 16; TEMP 97.9
--- NOTE | 2017-05-19 22:17 | PD ---
HPI Chief Complaint: Pain: Acute or Chronic Time Seen by Provider: 21:31 Travel History International Travel<30 days: No Contact w/Intl Traveler<30days: No Traveled to known affect area: No History of Present Illness HPI 81-year-old male with history of advanced stage renal carcinoma presents to the ED via EMS for evaluation. The patient states that he stopped receiving care for his cancer a few months ago. He has been having a home health nurse come in a few days a week to help with his ADLs. He states that he is feeling so weak and tired that he is unable to perform any of his own ADLs. He states that he's been having uncontrollable loose bowel movements. He states that he just has not been able to eat anything. He is on O2 at home. He denies fever, chills, cough, abdominal pain. The patient's daughter is at bedside and states that his has COPD, is oxygen dependent. His daughter states that the patient's has been up all night the last few nights helping to care for her . The patient's daughter states that they are here to have the patient provided with some fluids and get hospice treatment. The patient has a signed DNR at bedside. PFSH Past Medical History Cancer: Yes (RENAL MASS; MULTIPLE MYELOMA) Cardiovascular Problems: Yes (htn on meds) High Cholesterol: Yes Chemotherapy: Yes (Last [place] end May ) Diabetes: No Diminished Hearing: No Endocrine: No Gastrointestinal Disorders: Yes (constipation) Genitourinary: No Hepatitis: No Hiatal Hernia: No Hypertension: Yes Immune Disorder: No Musculoskeletal: Yes (left rib pain) Neurologic: No Psychiatric: No Reproductive: No Respiratory: No Immunizations Current: No Thyroid Disease: No Past Surgical History AICD: No Ear Surgery: Yes (right cataract) Joint Replacement: No Pacemaker: No Tonsillectomy: Yes Other Surgery: Yes (HEMORRHOIDECTOMY) Social History Alcohol Use: No (QUIT) Tobacco Use: No (QUIT 1987) Substance Use: No Allergies-Medications (Allergen,Severity, Reaction): Coded Allergies: No Known Allergies (Verified Adverse Reaction, Unknown, 05/19/17) Reported Meds & Prescriptions Reported Meds & Active Scripts Active Augmentin (Amoxicillin-Clavulanate) 875-125 Mg Tab 1 Tab PO BID Reported [Med For Sleep] 1 Tab PO HS Anoro Ellipta Inh (Umeclidinium/Vilanterol) 62.5-25 Mcg/Act Aero 1 Puff INH DAILY Atorvastatin (Atorvastatin Calcium) 40 Mg Tab 40 Mg PO DAILY Amlodipine (Amlodipine Besylate) 10 Mg Tab 10 Mg PO DAILY Review of Systems Except as stated in HPI: all other systems reviewed are Neg Physical Exam Narrative GENERAL: Cachectic, pale, ill-appearing white male with extra work of breathing. He is on 4 L by nasal cannula. SKIN: Dry appearing. HEAD: Normocephalic. EYES: No scleral icterus. No injection or drainage. NECK: Supple, trachea midline. No JVD or lymphadenopathy. CARDIOVASCULAR: Regular rate and rhythm without murmurs, gallops, or rubs. RESPIRATORY: Breath sounds equal bilaterally. No accessory muscle use. GASTROINTESTINAL: Abdomen scaphoid, nontender, nondistended MUSCULOSKELETAL: No cyanosis, or edema. BACK: Nontender without obvious deformity. No CVA tenderness. Data Data Last Documented VS Vital Signs Date Time Temp Pulse Resp B/P (MAP) Pulse Ox O2 Delivery O2 Flow Rate FiO2 05/19/17 22:04 97.9 121 16 89/61 (70) Nasal Cannula 05/19/17 22:01 65 4.00 Orders Orders Complete Blood Count With Diff (05/19/17 21:39) Basic Metabolic Panel (Bmp) (05/19/17 21:39) Electrocardiogram (05/19/17 ) ^ Insert Iv (05/19/17 21:39) Sodium Chlor 0.9% 1000 Ml Inj (Ns 1000 M (05/19/17 21:45) Ecg Monitoring (05/19/17 21:39) Oximetry (05/19/17 21:39) Oxygen Administration (05/19/17 21:39) (Hub Use Only)Inp Phy Cons/Ref (05/19/17 ) Hospice Consult (05/19/17 21:53) Ed Comfort Care (05/19/17 21:53) Protein Corrected Calcium(Pcc) (05/19/17 21:50) Labs Laboratory Tests Test 05/19/17 21:50 White Blood Count 27.0 TH/MM3 Red Blood Count 1.82 MIL/MM3 Hemoglobin 5.3 GM/DL Hematocrit 17.7 % Mean Corpuscular Volume 97.2 FL Mean Corpuscular Hemoglobin 29.1 PG Mean Corpuscular Hemoglobin Concent 30.0 % Red Cell Distribution Width 19.7 % Platelet Count 11 TH/MM3 Mean Platelet Volume 10.3 FL CBC Comment AUTO DIFF Blood Urea Nitrogen 51 MG/DL Creatinine 2.17 MG/DL Random Glucose 137 MG/DL Total Protein 4.9 GM/DL Calcium Level 7.2 MG/DL Sodium Level 140 MEQ/L Potassium Level 5.0 MEQ/L Chloride Level 112 MEQ/L Carbon Dioxide Level 6.9 MEQ/L Anion Gap 21 MEQ/L Estimat Glomerular Filtration Rate 29 ML/MIN Protein Corrected Calcium 8.4 MG/DL MDM Medical Decision Making Medical Screen Exam Complete: Yes Emergency Medical Condition: Yes Differential Diagnosis Advanced stage renal cancer versus hypoxia versus metabolic derangement versus other Narrative Course 81-year-old male with history of advanced stage renal carcinoma presents to the ED via EMS for evaluation. The patient states that he stopped receiving care for his cancer a few months ago. He states that he is feeling so weak and tired that he is unable to perform any of his own ADLs. Endorses alternating constipation and uncontrollable loose bowel movements. He is on O2 at home. He denies fever, chills, cough, abdominal pain. The patient's daughter is at bedside and states that his has COPD, is oxygen dependent. His daughter states that the patient's has been up all night the last few nights helping to care for her . The patient's daughter states that they are here to have the patient provided with some fluids and get hospice treatment. The patient has a signed DNR at bedside. O2 saturation 65% on arrival. Patients on 4 L by nasal cannula, refusing nonrebreather. BP 89/64. On exam the patient is chronically ill-appearing, cachectic, pale, increased work of breathing. No abdominal tenderness. No CVA tenderness. No lower extremity edema. IV was established and the patient was administered a liter of normal saline. On reevaluation the patient does seem improved. The patient and his daughter do affirm that they would like a hospice consult. This was placed. Comfort care was ordered. Patient is currently refusing any pain medications. He'll be discharged into the care of hospice. Diagnosis Primary Impression: Renal carcinoma Qualified Codes: C64.9 - Malignant neoplasm of unspecified kidney, except renal pelvis Disposition: 51 HOSPICE/MED FACILITY Condition: Eva Sneed May 19, 2017 22:17
[2017-05-19 22:20] LABS: MEAN CELL VOLUME 97.2 FL (80.0-100.0); MEAN CORPUSCULAR HEMOGLOBIN 29.1 PG (27.0-34.0); RED BLOOD COUNT 1.82 MIL/MM3 (4.50-5.90); RED CELL DISTRIBUTION WIDTH 19.7 % (11.6-17.2)
[2017-05-19 22:21] LABS: HEMO FLAGS AUTO DIFF
[2017-05-19 22:23] LABS: HEMATOCRIT 17.7 % (39.0-51.0)
[2017-05-19 22:24] LABS: PLATELET COUNT 11 TH/MM3 (150-450)
[2017-05-19 22:38] LABS: BICARBONATE 6.9 MEQ/L (21.0-32.0)
[2017-05-19 22:49] LABS: CALCIUM-PROTEIN CORRECTED 8.4 MG/DL (8.5-10.1)
[2017-05-19 22:58] LABS: BANDS 1 % (0-6); CORRECTED NUCLEATED RBC 6 /100 WBC (0-0); METAMYELOCYTES 2 % (0-1); MYELOCYTES 3 % (0-0); NEUTROPHIL # MANUAL DIFF 7.3 TH/MM3 (1.8-7.7); PLASMA CELLS 7 % (0-0); POLYS (SEG NEUTROPHILS) 21 % (16-70); WBC DIFF SAMPLE 100
[2017-05-19 22:59] LABS: OVALOCYTES 1+ (NORMAL); PLATELET ESTIMATE SMEAR LOW (NORMAL)
[2017-05-19 23:00] LABS: BURR CELLS 1+ (NORMAL); KERATOCYTES 1+ (NORMAL); PLATELET MORPHOLOGY HYPOGRAN (NORMAL); SCAN/DIFF FINAL DIFF MANUAL
[2017-05-20 01:06] VITALS: O2SAT 82
--- NOTE | 2017-05-22 07:23 | PD ---
Data Data Last Documented VS Vital Signs Date Time Temp Pulse Resp B/P (MAP) Pulse Ox O2 Delivery O2 Flow Rate FiO2 05/20/17 01:09 05/20/17 01:06 82 4.00 05/19/17 22:04 97.9 121 16 Nasal Cannula Orders Orders Complete Blood Count With Diff (05/19/17 21:39) Basic Metabolic Panel (Bmp) (05/19/17 21:39) ^ Insert Iv (05/19/17 21:39) Sodium Chlor 0.9% 1000 Ml Inj (Ns 1000 M (05/19/17 21:45) Ecg Monitoring (05/19/17 21:39) Oximetry (05/19/17 21:39) Oxygen Administration (05/19/17 21:39) (Hub Use Only)Inp Phy Cons/Ref (05/19/17 ) Hospice Consult (05/19/17 21:53) Ed Comfort Care (05/19/17 21:53) Protein Corrected Calcium(Pcc) (05/19/17 21:50) Labs Laboratory Tests Test 05/19/17 21:50 White Blood Count 27.0 TH/MM3 Red Blood Count 1.82 MIL/MM3 Hemoglobin 5.3 GM/DL Hematocrit 17.7 % Mean Corpuscular Volume 97.2 FL Mean Corpuscular Hemoglobin 29.1 PG Mean Corpuscular Hemoglobin Concent 30.0 % Red Cell Distribution Width 19.7 % Platelet Count 11 TH/MM3 Mean Platelet Volume 10.3 FL CBC Comment AUTO DIFF Differential Total Cells Counted 100 Neutrophils % (Manual) 21 % Band Neutrophils % 1 % Lymphocytes % 53 % Monocytes % 6 % Other Cells % 7 % Neutrophils # (Manual) 7.3 TH/MM3 Metamyelocytes 2 % Myelocytes 3 % Nucleated Red Blood Cells 6 /100 WBC Differential Comment FINAL DIFF MANUAL Plasma Cells 7 % Platelet Estimate LOW Platelet Morphology Comment HYPOGRAN Ovalocytes 1+ Cinebar Cells 1+ Keratocytes 1+ Blood Urea Nitrogen 51 MG/DL Creatinine 2.17 MG/DL Random Glucose 137 MG/DL Total Protein 4.9 GM/DL Calcium Level 7.2 MG/DL Sodium Level 140 MEQ/L Potassium Level 5.0 MEQ/L Chloride Level 112 MEQ/L Carbon Dioxide Level 6.9 MEQ/L Anion Gap 21 MEQ/L Estimat Glomerular Filtration Rate 29 ML/MIN Protein Corrected Calcium 8.4 MG/DL MDM Supervised Visit with CORAL: Yes Narrative Course The history, exam, and medical decision-making in the associated midlevel provider note were completed with my assistance. I reviewed and agree with the findings presented. I attest that I had a [id number] encounter with the patient on the same day, and personally performed and documented my assessment and findings in the medical record. *My assessment and Findings: This is an 81-year-old male who has a history of renal cell carcinoma and multiple myeloma who is currently not receiving chemotherapy who presents to the emergency department with failure to thrive, poorly controlled dyspnea and generalized weakness. Family is having trouble taking care of him at home. He has not been getting out of bed much and his activity tolerance is getting much poor. They're primarily focused with the patient's comfort. The patient does not want any invasive procedures and is interested in hospice care as a means to control his symptoms. I think this is reasonable. Hospice was consulted in the emergency department and the family agreed to pursue hospice at home. Diagnosis Primary Impression: Renal carcinoma Patient Instructions: General Instructions Departure Forms: Tests/Procedures Disposition: 51 HOSPICE/MED FACILITY Condition: Christy Herrera MD May 22, 2017 07:23
== END 2017-05-20 01:11 | disposition hospice, inpatient (51) ==
LOC: NEPC 21:17
DX: C64.9 Malignant neoplasm of unspecified kidney, except renal pelvis (principal); C90.00 Multiple myeloma not having achieved remission; R19.7 Diarrhea, unspecified; R53.1 Weakness; I10 Essential (primary) hypertension; E78.00 Pure hypercholesterolemia, unspecified
CPT/HCPCS: 80048; 84155; 85007; 85027; 99284; J7030